=== PATIENT | female | born 1970 | race Caucasian/White ===

== ENCOUNTER 2018-03-13 22:07 | Emergency (ER) | payer MEDICAID, OTHER ==
[2018-03-13 22:08] VITALS: BMI 31.5
[2018-03-13 22:51] VITALS: RESP 20; TEMP 98; O2SAT 98
[2018-03-13] MEDS ORDERED: Silver Sulfadiazine 1% Cream (20 gm) TOP STA (23:31)
[2018-03-13 23:33] VITALS: BP 109/73; PULSE 97
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
[2018-03-13] MEDS: Amoxicillin-Clav 875-125 mg Tab PO STA (23:39)
[2018-03-13] MEDS ORDERED: Silver Sulfadiazine 1% Cream (20 gm) ONE (23:39)
[2018-03-13] MEDS ORDERED: Amoxicillin-Clav 875-125 mg Tab PO ONE (23:40)
== END 2018-03-13 23:57 | disposition home or self-care (01) ==
LOC: C.ER 22:07
DX: T22.211A Burn of second degree of right forearm, initial encounter (principal); X08.8XXA Exposure to other specified smoke, fire and flames, initial encounter